=== PATIENT | female | born 1945 | race American Indian/Alaskan Native ===

== ENCOUNTER 2017-11-01 08:41 | Day surgery (SDC) | payer MEDICARE, OTHER ==
[~2017-11-01 08:41] MED LIST: Lactated Ringers 1,000 ML IV SCH
--- NOTE | 2017-11-01 09:26 | PCM.PREANE ---
Preanesthetic Assessment - Anesthesia/Transfusion/Family Hx Anesthesia History: Prior Anesthesia Without Reaction Other Type of Anesthesia Reaction Comment: DENIES ANY PROBLEMS WITH ANESTHESIA Family History of Anesthesia Reaction: No Transfusion History: No Prior Transfusion(s) Intubation History: Unknown - Review of Systems General: No Symptoms Pulmonary: No Symptoms Cardiovascular: No Symptoms Gastrointestinal: Hematochezia, Other (h/o colon polyp '16) Neurological: No Symptoms Other: Reports: None - Physical Assessment Height: 1.57 m Weight: 121.109 kg ASA Class: 3 Mental Status: Alert & Oriented x3 Airway Class: Mallampati = 2 Dentition: Reports: Dentures (upper and lower') Thyro-Mental Finger Breadths: 3 Mouth Opening Finger Breadths: 3 ROM/Head Extension: Limited/Partial Lungs: Clear to Auscultation, Normal Respiratory Effort Cardiovascular: Regular Rate, Regular Rhythm - Allergies Allergies/Adverse Reactions: Allergies Allergy/AdvReac Type Severity Reaction Status Date / Time enalapril Allergy Cough Verified 10/28/17 14:42 lisinopril Allergy Cough Verified 10/28/17 14:42 metal Allergy Rash Uncoded 10/28/17 14:42 NICKEL Allergy Rash Uncoded 09/17/13 08:36 - Blood Blood Available: No - Anesthesia Plan Pre-Op Medication Ordered: None - Acknowledgements Anesthesia Type Planned: MAC Pt an Appropriate Candidate for the Planned Anesthesia: Yes Alternatives and Risks of Anesthesia Discussed w Pt/Guardian: Yes Pt/Guardian Understands and Agrees with Anesthesia Plan: Yes PreAnesthesia Questionnaire HEENT History: Reports: Other (See Below) Other HEENT History: wears glasses, top and bottom denture Cardiovascular History: Reports: CAD, High Cholesterol, Hypertension, [place], SOB on Exertion (like simple walking around) Other Cardiovascular History: hx [place] and stent placement x1 1-1 1/2 years ago in [place]- ECHO dyastolic LV disfunction , systolic ok Respiratory History: Reports: Other (See Below) Other Respiratory History: recently had sleep study but has not gotten her results, diagnosed with "restrictive lung disease", Gastrointestinal History: Reports: Chronic Diarrhea, GERD, Irritable Bowel Syndrome Genitourinary History: Reports: UTI, Recurrent [employer] History: Reports: Musculoskeletal History: Reports: Arthritis, Fracture, Other (See Below) ( osteoporosis) Neurological History: Reports: Migraines Psychiatric History: Reports: None Endocrine/Metabolic History: Reports: Hypothyroidism, Obesity/BMI 30+ (BMI 48.8 morbid obesity) Hematologic History: Reports: None Immunologic History: Reports: None Oncologic (Cancer) History: Reports: None Dermatologic History: Reports: Other (See Below) Other Dermatologic History: white patch on elbow, - Infectious Disease History Infectious Disease History: Reports: None - Past Surgical History Head Surgeries/Procedures: Reports: None HEENT Surgical History: Reports: Cataract Surgery Cardiovascular Surgical History: Reports: Coronary Artery Stent GI Surgical History: Reports: Colonoscopy ( (polyp)), EGD Female Surgical History: Reports: Hysterectomy, Salpingo-Oophorectomy Musculoskeletal Surgical History: Reports: Other (See Below) Other Musculoskeletal Surgeries/Procedures:: surgery for left foot fracture - SUBSTANCE USE Smoking Status *Q: Former Smoker Tobacco Use Within Last Twelve Months: No Recreational Drug Use History: No - HOME MEDS Home Medications: Home Meds Aspirin [Lang Chewable Aspirin] 81 mg PO DAILY 09/17/13 [History] Omeprazole 20 mg PO DAILY 09/17/13 [History] Levothyroxine 125 mcg PO DAILY 03/09/15 [History] Ranitidine [Zantac] 150 mg PO BEDTIME 03/09/15 [History] Rosuvastatin [Crestor] 20 mg PO DAILY 03/09/15 [History] Telmisartan [Micardis] 20 mg PO DAILY 03/09/15 [History] Alendronate Sodium [Alendronate] 70 mg PO WEEKLY 10/19/15 [History] Diltiazem [Cardizem CD] 300 mg PO DAILY 10/19/15 [History] Potassium Chloride [Klor-Con 8] 8 meq PO DAILY 10/19/15 [History] Ranitidine HCl [Zantac] 1 tab PO ASDIRECTED PRN 10/28/17 [History] Albuterol [Ventolin HFA] 1 - 2 puff INH ASDIRECTED PRN 10/29/17 [History] - CURRENT (IN HOUSE) MEDS Current Meds: Current Medications Lactated Ringer's (Ringers, Lactated) 1,000 mls @ 125 mls/hr IV ASDIRECTED FABIAN
[2017-11-01] MEDS ORDERED: Propofol 200 MG/20 ML SDV ONE (09:45)
[2017-11-01] MEDS ORDERED: Lidocaine 2% 5 ML SDV ONE (09:45)
[2017-11-01] MEDS ORDERED: Midazolam 1 MG/ML 2 ML SDV ONE (09:46)
[2017-11-01] MEDS ORDERED: fentaNYL 100 MCG/2 ML SDV ONE (09:46)
--- NOTE | 2017-11-01 10:56 | PCM.OPNOTE ---
- General Post-Op/Procedure Note Date of Surgery/Procedure: 11/01/17 Operative Procedure(s): Colonoscopy with cold, mid and distal sigmoid and rectal polypectomies Pre Op Diagnosis: Personal history of colon polyps Post-Op Diagnosis: Mid and distal sigmoid colon polyps. Rectal polyp. Anesthesia Technique: MAC (ASA III) Primary Surgeon: Hector Ceja Condition: Good Free Text/Narrative:: DICTATION [id number] CPT CODE [id number]
[2017-11-01] MEDS ORDERED: Lactated Ringers 1,000 ML IV SCH (11:00)
--- NOTE | 2017-11-01 11:54 | PCM48HPAN ---
Post Anesthesia Note - EVALUATION WITHIN 48HRS OF ANESTHETIC Vital Signs in Normal Range: Yes Patient Participated in Evaluation: Yes Respiratory Function Stable: Yes Airway Patent: Yes Cardiovascular Function Stable: Yes Hydration Status Stable: Yes Pain Control Satisfactory: Yes Nausea and Vomiting Control Satisfactory: Yes Mental Status Recovered: Yes Resp Rate: 24 - COMMENTS/OBSERVATIONS Free Text/Narrative:: no anesthesia problems
[2017-11-01 13:19] VITALS: BP 138/80
--- NOTE | 2017-11-04 08:34 | OR ---
SURGEON: Hector Ceja M.D. DATE OF PROCEDURE: 11/01/2017 OPERATION PERFORMED: Colonoscopy with cold mid and distal sigmoid polypectomy and cold rectal polypectomy. ANESTHESIA: MAC. ASA CLASSIFICATION: III. PREOPERATIVE DIAGNOSIS: Personal history of colon polyps. POSTOPERATIVE DIAGNOSES: Mid and distal sigmoid polyps and rectal polyp. DESCRIPTION OF PROCEDURE: The patient was taken to the endoscopy room and positioned on the endoscopy table in the left lateral decubitus position. Time-out was called for appropriate identification of the patient and procedure. Monitored anesthesia care was provided. The colonoscope was inserted into the rectum and advanced with moderate difficulty to the cecum where the colonoscope was retroflexed to visualize the ascending colon from below. The ileocecal valve was cannulated and the distal ileum viewed. The distal ileum mucosa appears normal. The cecum, ascending colon, hepatic flexure, transverse colon, splenic flexure, and descending colon showed no tumors, polyps, diverticula, angiodysplasia, or evidence of inflammatory bowel disease. Two small polyps were encountered in the sigmoid colon, one in the midportion and one in the distal portion. These were separately biopsied and sent for histologic analysis. A third polyp was encountered in the rectum and also removed with the cold biopsy forceps. No bleeding was noted from any of the polypectomy sites. The colonoscope was retroflexed in the rectum to visualize the anal orifice from above. No other tumors or polyps were seen. There were no acute hemorrhoidal changes. The colonoscope was then straightened, the rectum aspirated, and the colonoscope removed. The patient tolerated the procedure well and was taken to recovery room in satisfactory condition. RINA / SUE /[id number]
== END 2017-11-01 12:05 | disposition home or self-care (01) ==
LOC: MW.SDS 08:41
PROVIDERS: ATTEND Surgery
DX: Z12.11 Encounter for screening for malignant neoplasm of colon (principal); D12.5 Benign neoplasm of sigmoid colon; I10 Essential (primary) hypertension; D12.8 Benign neoplasm of rectum; E66.01 Morbid (severe) obesity due to excess calories; Z68.42 Body mass index [BMI] 45.0-49.9, adult; I25.10 Atherosclerotic heart disease of native coronary artery without angina pectoris; E03.9 Hypothyroidism, unspecified; E78.00 Pure hypercholesterolemia, unspecified; Z86.010 Personal history of colon polyps; Z87.891 Personal history of nicotine dependence; Z79.82 Long term (current) use of aspirin; Z79.899 Other long term (current) drug therapy; Z91.048 Other nonmedicinal substance allergy status; Z80.0 Family history of malignant neoplasm of digestive organs
CPT/HCPCS: 45380; J2250; J3010; J7120; J2704